=== PATIENT | female | born 1960 | race Caucasian/White ===

== ENCOUNTER → 2023-07-01 15:53 | Outpatient (REF) | payer BC, SELFPAY | LOC: HWWDC 15:53 | PROVIDERS: ATTENDING PHYSICIAN Obstetrics & Gynecology Gynecology; FAMILY PHYSICIAN Internal Medicine | DX: Z12.31 Encounter for screening mammogram for malignant neoplasm of breast (principal); Z85.3 Personal history of malignant neoplasm of breast | CPT/HCPCS: 77063; 77067 ==

== ENCOUNTER → 2023-08-06 08:48 | Outpatient (REF) | payer BC, SELFPAY | LOC: HWRAD 08:48 | PROVIDERS: ATTENDING PHYSICIAN Obstetrics & Gynecology Gynecology; FAMILY PHYSICIAN Internal Medicine | DX: Z78.0 Asymptomatic menopausal state (principal) | CPT/HCPCS: 77080 ==

== ENCOUNTER → 2024-01-10 06:18 | Day surgery (SDC) | payer BC, SELFPAY | LOC: GI 06:18 | PROVIDERS: ATTENDING PHYSICIAN Internal Medicine | DX: Z12.11 Encounter for screening for malignant neoplasm of colon (principal); K64.8 Other hemorrhoids; D12.4 Benign neoplasm of descending colon; Z83.710 Family history of adenomatous and serrated polyps | CPT/HCPCS: 45385; 88305 ==

== ENCOUNTER 2024-03-16 00:37 | Inpatient (IN) | payer BC, SELFPAY ==
[2024-03-15 21:04] VITALS: BP 124/86
[2024-03-15 21:20] VITALS: BMI 21.8
--- NOTE | 2024-03-15 21:26 | ED.GENMED ---
History of Present Illness
<BRITNEY Evans - Last Filed: 03/16/24 01:29>
General
Chief Complaint: Flank Pain
Source: patient
Exam Limitations: clinical condition
Time Seen by Provider: 03/15/24 21:08
Nursing documentation reviewed up to this point in time: agreed with
History of Present Illness
History of Present Illness:
Patient is a 63yo F w/ PMH of kidney stones (2017) presents w/ complaint of L flank pain x3hrs. She reports around 6:30 pm feeling like she was developing a UTI which is how she felt last time she had kidney stones. This developed into dull L flank
pain which quickly turned into sharp pain w/ associated N/V. She tried taking 3 Motrin and vomited immediately after. Reports continued nausea and severe pain. States it feels like last time she had kidney stones but worse. She states her recent
urine has looked normal w/o cloudiness and blood. Denies fever, chills, fatigue, RIZO.
Review of Systems
<BRITNEY Evans - Last Filed: 03/16/24 01:29>
Review of Systems
Constitutional: Denies fever, fatigue or chills
EENT: Denies sore throat or runny nose
Respiratory: Denies cough or trouble breathing
Cardiac: Denies chest pain or palpitations
ABD/GI: Reports abdominal pain, nausea and vomiting; Denies diarrhea or constipated
: Reports flank pain; Denies dysuria, frequency, bleeding or dark urine
Neurological: Denies dizzy, headache, weakness or numbness
Phy Exam
<BRITNEY Evans - Last Filed: 03/16/24 01:29>
General Physical Exam
General Presentation: severe distress
General age: appears stated age
General Skin: warm and dry
General Habitus: normal
General Mental: tearful
Cardiovascular Exam
Cardiovascular Exam: regular rate/rhythm, no edema, no gallop and no murmur
Pulmonary Exam
Pulmonary Exam: lungs clear, no respiratory distress, no rales, no crackles, no rhonchi and no wheezing
Gastrointestinal Exam
Gastrointestinal Exam: normal bowel sounds, soft and non distended
Course
<Manju Noonan [facility] - Last Filed: 03/16/24 01:29>
Orders/Labs/Results
Orders:
Orders
03/15/24 21:22
CMP [Comprehensive Metabolic Panel] Urgent
Complete Blood Count/With Diff Urgent
Lipase Urgent
Comment: ADD ON
03/15/24 21:25
0.9% Sodium Chloride 1000 ml [Nss] 1,000 ml IV BOLUS
HYDROmorphone [Dilaudid] 0.5 mg IV NOW STA
Ketorolac [Toradol] 15 mg IV NOW STA
Ondansetron Injectable [Zofran] 4 mg IV NOW STA
03/15/24 21:26
CT Abd/pel Without Iv Or Oral Urgent
Comment:
Reason For Exam: l flank pain
03/15/24 22:19
Morphine Sulfate 4 mg IV NOW STA
03/15/24 22:47
HYDROmorphone [Dilaudid] 0.5 mg IV NOW STA
03/15/24 23:09
Urinalysis Reflex To Culture Urgent
Date Specimen was Collected: 03/15/24
Time Specimen was Collected: 23:07
Urine Microscopic Reflex Cult Urgent
Urine Culture Urgent
LOYD Source: U
Specimen Description:
Date Specimen was Collected: 03/15/24
Time Specimen was Collected: 23:07
03/15/24 23:17
CefTRIAXone [Rocephin] 2,000 mg IV NOW STA
03/15/24 23:28
Sterile Water [Sterile Water For Injection] 20 ml .ROUTE .[facility]
03/15/24 23:52
Morphine Sulfate 4 mg IV NOW STA
03/16/24 00:27
Admit/Transfer Patient As Directed
Co-Sign Provider:
Level of Care: Inpatient admission
Assign to:: Medical/Surgical
Physician / Group: Hospitalist
Diagnosis: Nephrolithiasis
Reason for Hospitalization: Complicated nephrolithiasis, uti
Expected length of stay greater than two midnights?: Yes
ELOS- Estimated Length of Stay in days: 2
I certify the patient meets the requirements for IP care: Yes
Code Status As Directed
Resuscitation Status: Full Code
PRN Pain Medication Management As Directed
May give lesser potent ordered pain med per pt: Yes
preference::
Protocol:: Medication orders for pain may be administered in a
manner that supports deferring to patient preference
when the pt is:
- Requesting an ordered lesser potent pain medication.
Least to most potent pain medications are defined
as: acetaminophen < NSAID < tramadol < opioids
(morphine, oxycodone, hydromorphone).
- Requesting a lesser dose of the same medication IF
ORDERED.
- Requesting a less intrusive route of administration
if both routes are prescribed by the provider (PO <
IV).
03/16/24 00:31
HYDROmorphone [Dilaudid] 0.5 mg IV NOW STA
03/16/24 01:00
Flush (0.9% Sodium Chloride) [Flush (Nss)] See Dose Instructions IV PER PROTOCOL
Abnormal Lab Results
03/15/24 03/15/24
21:22 23:09
MCH 31.8 H pg
(27.0-31.0)
Abs Immat Gran (auto) 0.1 H 10^3/uL
(0-0.05)
Immature Gran % 0.6 H %
(0-0.5)
BUN 27 H mg/dl
(7-17)
Glucose 136 H mg/dl
(70-99)
Urine Ketones 1+ A
(Negative)
Urine Nitrite (Reflex) Positive A
(Negative)
Urine Bilirubin 2+ A
(Negative)
Urine Urobilinogen 3+ A
(Neg - 1+)
Leukocyte Esterase Rfl Trace A
(Negative)
Urine RBC 3-6 A /HPF
(0-2)
Urine Bacteria (Reflex) Moderate A
(Negative)
03/15/24 21:22
03/15/24 21:22
Vital Signs
Initial and Last Documented VS:
Initial Vital Signs
Temp Pulse Resp BP Pulse Ox
98.2 F 64 28 124/86 100
03/15/24 21:04 03/15/24 21:04 03/15/24 21:04 03/15/24 21:04 03/15/24 21:04
Last Documented Vital Signs
Temp Pulse Resp BP Pulse Ox
98.2 F 57 12 131/80 98
03/15/24 21:04 03/16/24 00:45 03/16/24 00:45 03/16/24 00:01 03/16/24 00:45
Renéelt;Derian Whiteside, DO - Last Filed: 03/15/24 23:37>
Orders/Labs/Results
Orders:
Orders
03/15/24 21:22
CMP [Comprehensive Metabolic Panel] Urgent
Complete Blood Count/With Diff Urgent
Lipase Urgent
Comment: ADD ON
03/15/24 21:25
0.9% Sodium Chloride 1000 ml [Nss] 1,000 ml IV BOLUS
HYDROmorphone [Dilaudid] 0.5 mg IV NOW STA
Ketorolac [Toradol] 15 mg IV NOW STA
Ondansetron Injectable [Zofran] 4 mg IV NOW STA
03/15/24 21:26
CT Abd/pel Without Iv Or Oral Urgent
Comment:
Reason For Exam: l flank pain
03/15/24 22:19
Morphine Sulfate 4 mg IV NOW STA
03/15/24 22:47
HYDROmorphone [Dilaudid] 0.5 mg IV NOW STA
03/15/24 23:09
Urinalysis Reflex To Culture Urgent
Date Specimen was Collected: 03/15/24
Time Specimen was Collected: 23:07
Urine Microscopic Reflex Cult Urgent
Urine Culture Urgent
LOYD Source: U
Specimen Description:
Date Specimen was Collected: 03/15/24
Time Specimen was Collected: 23:07
03/15/24 23:17
CefTRIAXone [Rocephin] 2,000 mg IV NOW STA
03/15/24 23:28
Sterile Water [Sterile Water For Injection] 20 ml .ROUTE .[facility]-MED
03/15/24 23:52
Morphine Sulfate 4 mg IV NOW STA
03/16/24 00:27
Admit/Transfer Patient As Directed
Co-Sign Provider:
Level of Care: Inpatient admission
Assign to:: Medical/Surgical
Physician / Group: Hospitalist
Diagnosis: Nephrolithiasis
Reason for Hospitalization: Complicated nephrolithiasis, uti
Expected length of stay greater than two midnights?: Yes
ELOS- Estimated Length of Stay in days: 2
I certify the patient meets the requirements for IP care: Yes
Code Status As Directed
Resuscitation Status: Full Code
PRN Pain Medication Management As Directed
May give lesser potent ordered pain med per pt: Yes
preference::
Protocol:: Medication orders for pain may be administered in a
manner that supports deferring to patient preference
when the pt is:
- Requesting an ordered lesser potent pain medication.
Least to most potent pain medications are defined
as: acetaminophen < NSAID < tramadol < opioids
(morphine, oxycodone, hydromorphone).
- Requesting a lesser dose of the same medication IF
ORDERED.
- Requesting a less intrusive route of administration
if both routes are prescribed by the provider (PO <
IV).
03/16/24 00:31
HYDROmorphone [Dilaudid] 0.5 mg IV NOW STA
03/16/24 01:00
Flush (0.9% Sodium Chloride) [Flush (Nss)] See Dose Instructions IV PER PROTOCOL
Abnormal Lab Results
03/15/24 03/15/24
21:22 23:09
MCH 31.8 H pg
(27.0-31.0)
Abs Immat Gran (auto) 0.1 H 10^3/uL
(0-0.05)
Immature Gran % 0.6 H %
(0-0.5)
BUN 27 H mg/dl
(7-17)
Glucose 136 H mg/dl
(70-99)
Urine Ketones 1+ A
(Negative)
Urine Nitrite (Reflex) Positive A
(Negative)
Urine Bilirubin 2+ A
(Negative)
Urine Urobilinogen 3+ A
(Neg - 1+)
Leukocyte Esterase Rfl Trace A
(Negative)
Urine RBC 3-6 A /HPF
(0-2)
Urine Bacteria (Reflex) Moderate A
(Negative)
03/15/24 21:22
03/15/24 21:22
Vital Signs
Initial and Last Documented VS:
Initial Vital Signs
Temp Pulse Resp BP Pulse Ox
98.2 F 64 28 124/86 100
03/15/24 21:04 03/15/24 21:04 03/15/24 21:04 03/15/24 21:04 03/15/24 21:04
Last Documented Vital Signs
Temp Pulse Resp BP Pulse Ox
98.2 F 57 12 131/80 98
03/15/24 21:04 03/16/24 00:45 03/16/24 00:45 03/16/24 00:01 03/16/24 00:45
<BRITNEY Evans - Last Filed: 03/16/24 01:29>
MDM/Problems Addressed
Differential Diagnosis Includes:
nephrolithiasis, pyelonephritis, muscle spasm
<BRITNEY Evans - Last Filed: 03/16/24 01:29>
*Critical Care Note
Total Time (30-74mins, 75-104mins- exclusive of procedures): Not Applicable
<Derian Whiteside DO - Last Filed: 03/15/24 23:37>
Update Note
Update Note:
IMPRESSION:
2 mm obstructing left ureterovesical junction calculus.
Bilateral nephrolithiasis.
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 Consider follow-up evaluation with CT or MRI of the lower chest/upper abdomen in 6 months-1 year.
Calcified fibroid in the right pelvis.
Bony degenerative changes as described.
ED Attending Note
<BRITNEY Evans - Last Filed: 03/16/24 01:29>
-
Portions of this chart may have been created with voice recognition software.� Occasional wrong word or��sound alike� substitutions may have occurred due to the inherent limitations of voice recognition software.
<Derian Whiteside DO - Last Filed: 03/15/24 23:37>
ED Attending Note
Patient seen and examined by attending physician: Yes
I performed the substantive portion of visit, reviewed & personally made and approve the management plan that is documented in note by myself or SHONDA.: Yes
ED Attending Note:
Pleasant 63-year-old female presents to the emergency department with left flank pain that occurred approximate 3 hours prior to arrival. She states that around 6:30 PM she had sharp pain that radiated around to her front. She felt that she was
developing a urinary tract infection so she came into the emergency department. She does have a history of kidney stones but states that this kidney stone feels worse. She did take 3 Motrin but vomited them up. She does report some nausea
especially when the pain flares up. She denies fever or chills. Patient was seen in conjunction with the PA student. I have reviewed and agree with the history and treatment plan presented. On my independent physical exam, patient is awake,
alert, and oriented x3, moderate to severe acute distress. Left CVA tenderness. Heart is regular rate rhythm. Abdomen soft and nontender with good bowel sounds throughout. Moves all [address] scan shows a 2 mm kidney stone. Patient has required several doses of pain medication. She does have a UTI. She received Rocephin. Spoke with Serafin Andrade, urology who agreed with plan to admit to hospitalist service. Hospitalist aware.
Discharge Plan
Departure
Patient Disposition: Admit
Date of Disposition: 03/15/24
Time of Disposition: 23:36
Admit to: Med/Surg
Presentation/result/management discussed w/ accepting MD/DO: Hospitalist
Discharge Problem:
Kidney stone, UTI (urinary tract infection)
Interventions
Interventions:
*Risk Screen - Suicide Last Done: 03/15/24 21:21
*General Assessment Last Done: 03/15/24 21:21
*Neglect/Abuse Screening Last Done: 03/15/24 21:21
ED- Fall Risk Assessment Last Done: 03/15/24 21:32
*ED COVID-19 Vaccine History Last Done: 03/15/24 21:21
XW-Xfufqv-Bsqadagfmi Assessment Last Done: 03/15/24 21:32
ED-Female Genitourinary Assessment Last Done: 03/15/24 21:32
[2024-03-15 21:28] LABS: % Basophils 0.6 % (0-2); % Eosinophils 0.7 % (0-6); % Immature Granulocytes 0.6 % (0-0.5); % Lymphocytes 33.1 % (20.5-51.1); % Monocytes 4.2 % (1.7-9.3); % Neutrophils 60.8 % (42.2-75.2); Absolute Basophils 0.1 10^3/uL (0-0.2); Absolute Eosinophils 0.1 10^3/uL (0-0.7); Absolute Immature Granulocytes 0.1 10^3/uL (0-0.05); Absolute Lymphocytes 2.8 10^3/uL (1.2-3.4); Absolute Monocytes 0.4 10^3/uL (0.1-0.6); Absolute Neutrophils 5.2 10^3/uL (1.4-6.5); Hematocrit 38.4 % (37.0-47.0); Hemoglobin 13.9 g/dL (12.0-16.0); Mean Corp Hgb Conc. 36.2 g/dL (33.0-37.0); Mean Corpuscular Hgb 31.8 pg (27.0-31.0); Mean Corpuscular Volume 87.9 fL (81.0-99.0); Mean Platelet Volume 8.9 fL (7.4-10.4); Nucleated Red Blood Cells % 0 %; Platelet Count 246 10^3/uL (130-400); Red Blood Cell Count 4.37 10^6/uL (4.20-5.40); Red Cell Dist. Width 11.9 % (11.5-14.5); White Blood Cell Count 8.6 10^3/uL (4.8-10.8)
[2024-03-15] MEDS: DILAUDID 0.5 MG IV ×2 (21:29→22:52)
[2024-03-15] MEDS: NSS 1000 IV (21:29)
[2024-03-15] MEDS: TORADOL 15 MG IV (21:29)
[2024-03-15] MEDS: ZOFRAN 4 MG IV (21:29)
[2024-03-15 21:41] LABS: ALT (SGPT) 19 U/L (0-35); AST (SGOT) 28 U/L (14-36); Albumin 4.6 g/dl (3.5-5.0); Alkaline Phosphatase 61 U/L (38-126); Blood Urea Nitrogen 27 mg/dl (7-17); Calcium 10.1 mg/dl (8.4-10.2); Carbon Dioxide 22 mmol/L (22-30); Chloride 106 mmol/L (98-107); Estimated Creatinine Clearance 61 ml/min; Glucose 136 mg/dl (70-99); Potassium 4.1 mmol/L (3.5-5.1); Sodium 142 mmol/L (135-145); Total Bilirubin 1.1 mg/dl (0.2-1.3); Total Protein 6.8 g/dl (6.3-8.2); eGFR > 60.00
[2024-03-15 21:45] LABS: Lipase 112 U/L (23-300)
[2024-03-15 21:51] VITALS: BP 109/71
[2024-03-15 22:00] VITALS: BP 114/82
[2024-03-15] MEDS: MORPHINE SULFATE 4 MG IV ×2 (22:20→23:56)
[2024-03-15 23:05] VITALS: BP 141/82
[2024-03-15 23:15] LABS: Urine Albumin Trace (Neg - Trace); Urine Bilirubin 2+ (Negative); Urine Character Clear (Clear); Urine Color Orange; Urine Glucose Negative (Negative); Urine Ketone 1+ (Negative); Urine Leukocyte Trace (Negative); Urine Nitrite Positive (Negative); Urine Occult Blood Negative (Negative); Urine Urobilinogen 3+ (Neg - 1+)
[2024-03-15 23:29] LABS: Urine Bacteria Moderate (Negative); Urine Squamous Cell 0-2 /LPF (Few)
[2024-03-15] MEDS: ROCEPHIN 2000 MG IV (23:31)
[2024-03-16 00:01] VITALS: BP 131/80
--- NOTE | 2024-03-16 00:31 | HPS.HSE ---
Family Physician
-
Family Physician: Josue Garcia
Chief Complaint
-
Left-sided flank pain
History of Present Illness
This is a 63-year-old female with past medical history of lumpectomy and prior kidney stone presents to the emergency department with acute onset of left-sided flank pain radiating to the left groin. Patient was in usual state of health up until
event that happened during the nighttime prior to coming to the ED. She had nausea but no vomiting. She has had no fevers or chills. She denies any dysuria. No recent hematuria. Patient reportedly had a kidney stone in the left kidney in 2017.
She stated that she passed the stone spontaneously. No other episodes. She reported that she started taking vitamin D and calcium supplements recently.
On arrival in the emergency department she was afebrile, she was hemodynamically stable with a blood pressure of 130/80, pulse of 60 and she was satting 100% on room air. UA was markedly positive with blood pyuria and moderate bacteriuria. WBC
hemoglobin and platelet counts were all within normal limits. Chemistries were unremarkable. A CT of the abdomen pelvis showed a 2 mm left UVJ stone without hydro.
Medical History
Past Medical History
Past Medical History: Reports Other (Nephrolithiasis)
Past Surgical History: Reports Other
Social History
Tobacco: Non-smoker
Alcohol: Occasional
Drug: None
Personal:
Living: With Family
Employment: Employed
Family History
Family History: Cancer
Allergies / Home Medications
Allergies reflects when Allergies were last updated in [employer].
Home Medications with original date entered in [employer]
Allergy/Medication List:
Allergies
Allergy/AdvReac Type Severity Reaction Status Date / Time
No Known Allergies Allergy Verified 03/15/24 21:06
Home Medications
Vitamin D3 (with calcium carb) 1 tab PO 03/15/24
Review of Systems
-
History Source: Patient
Constitutional: Reports No Symptoms
EENT: Reports No Symptoms
Respiratory: Reports No Symptoms
Cardiac: Reports No Symptoms
Abdomen/GI: Reports No Symptoms
: Reports Flank Pain
Musculoskeletal: Reports No Symptoms
Skin: Reports No Symptoms
Neurological: Reports No Symptoms
Endocrine: Reports No Symptoms
Hematologic/Lymphatic: Reports No Symptoms
Psych: Reports No Symptoms
Physical Exam
Vital Signs
Vital Signs
Temp Pulse Resp BP Pulse Ox
98.2 F 62 20 131/80 100
03/15/24 21:04 03/16/24 00:01 03/16/24 00:01 03/16/24 00:01 03/15/24 23:45
Physical Exam
General: Well Developed, Well Nourished and Pain
HEENT: NormoCephalic, Anicteric, Moist mucous membranes and Atraumatic
Respiratory: Clear
Cardiac: S1/S2 and Regular Rhythm
Breast: Deferred by me
GI: Soft, Non Tender, Non Distended and Normal Bowel Sounds
Rectal: Deferred by Provider
Genito-urinary: Costovertebral angle tend
Musculoskeletal: No Clubbing, No Cyanosis and No Edema
Skin: Warm
Neuro: AO x 3
Hematologic/Lymphatic: No Lymphadenopathy
Psych: Calm
Laboratory Results
-
03/15/24 21:22
03/15/24 21:22
Laboratory Results
Total Bilirubin 1.1 mg/dl (0.2-1.3) 03/15/24 21:22
AST 28 U/L (14-36) 03/15/24 21:22
ALT 19 U/L (0-35) 03/15/24 21:22
Alkaline Phosphatase 61 U/L (38-126) 03/15/24 21:22
Lipase Cancelled 03/15/24 21:25
Data Reviewed
-
CT Scan: Report Reviewed by me
Lab Data: Labs Reviewed by me
Impression/Plan
-
IMPRESSION:
63-year-old female generally healthy with history of prior left-sided kidney stone which passed percutaneously 2017 comes in with left-sided flank pain radiating to groin and found to have a urinary tract infection and positive UA. She has no
systemic signs of infection at this time.
PLAN:
1. Nephrolithiasis - 2mm L UVJ stone, no hydro. + U/A.
- admit to med/surg
- urine cultures sent
- continue ceftriaxone
- d/w urology, NPO, to see in am
- IV fluids, tamsulosin, pain control and antiemetics
- strain urine for now
DVT PPX - SCD pending urology evaluation
Code Status - Full Code
[2024-03-16] MEDS: DILAUDID 0.5 MG IV (00:38)
[2024-03-16 01:00] VITALS: BP 116/69
[2024-03-16] MEDS: NSS 1000 IV (02:26)
--- NOTE | 2024-03-16 02:54 | PTCARENOTE ---
Pt received from ED via stretcher. Pt independent from stretcher to bed. Vitals signs obtained and stable, pt AAOX3, oriented to room and call carlton within reach. Pain meds given in ED, no complaints of pain currently. Will continue to monitor.
[2024-03-16 05:51] LABS: Hemoglobin 12.1 g/dL (12.0-16.0); Mean Corp Hgb Conc. 34.6 g/dL (33.0-37.0); Mean Corpuscular Hgb 31.8 pg (27.0-31.0); Mean Corpuscular Volume 91.9 fL (81.0-99.0); Mean Platelet Volume 8.9 fL (7.4-10.4); Platelet Count 206 10^3/uL (130-400); Red Blood Cell Count 3.81 10^6/uL (4.20-5.40); Red Cell Dist. Width 11.9 % (11.5-14.5)
[2024-03-16 06:04] LABS: INR 1.03; PT 13.4 Sec (11.4-14.6)
--- NOTE | 2024-03-16 06:04 | CON.MD ---
Consultation - Medical
-
see dictated note
pt with remote hx of stones
presented to ER with colic- left uvj stone
admitted for pain control- but passed stone- feels great
? UTI
reviewed with pt
discharge with antibx
send stone for analysis
antibx
call my office in 48hrs to schedule appointment and review cx results
[2024-03-16 06:05] LABS: APTT 26.7 Sec (23.4-35.0)
[2024-03-16 06:18] LABS: Blood Urea Nitrogen 25 mg/dl (7-17); Calcium 8.9 mg/dl (8.4-10.2); Carbon Dioxide 25 mmol/L (22-30); Chloride 108 mmol/L (98-107); Estimated Creatinine Clearance 61 ml/min; Glucose 132 mg/dl (70-99); Potassium 4.7 mmol/L (3.5-5.1); Sodium 142 mmol/L (135-145); eGFR > 60.00
[2024-03-16 07:42] VITALS: BP 99/62
--- NOTE | 2024-03-16 08:45 | CM ---
Pt discharged prior to CM completing assessment
Per chart review, no dc needs noted
--- NOTE | 2024-03-16 09:03 | W.DS.TRANS ---
DC Summary - [employer]
-
Discharge Instructions:
Discharge Diagnosis/Procedures kidney stone and possible urinary tract
infection
Diet No restrictions
Activity No restrictions
Driving Restrictions As prior to admission
Bathing Restrictions None
Instructions:
Stand-Alone Forms:
Changes to Home Medications: No
Discharge Medications:
DC Medications w/original date entered in [employer]
Vitamin D3 (with calcium carb) 1 tab PO 03/15/24
sulfamethoxazole 800 mg-trimethoprim 160 mg tablet (Bactrim DS) 1 tab PO BID #10 tabs 03/16/24
Home Medication Changes
Pending Results: Yes
Additional Pending Results:
urine culture
Total time spent discharging patient (in min): 20 minutes
== END 2024-03-16 08:15 | disposition home or self-care (01) | DRG 694 ==
LOC: 3 WEST ACU 00:37
PROVIDERS: ADMITTING PHYSICIAN Internal Medicine; ATTENDING PHYSICIAN Hospitalist; CONSULT PHYSICIAN Specialist; EMERGENCY PHYSICIAN Student in an Organized Health Care Education/Training Program; FAMILY PHYSICIAN Internal Medicine
DX: N20.2 Calculus of kidney with calculus of ureter (principal); N39.0 Urinary tract infection, site not specified; Z87.442 Personal history of urinary calculi
CPT/HCPCS: 74176; 80048; 80053; 81003; 81015; 82365; 83690; 83735; 85025; 85027; 85610; 85730; 87086; 96361; 96374; 96375; 96376; 99285

== ENCOUNTER → 2024-07-02 15:27 | Outpatient (REF) | payer BC, SELFPAY | LOC: HWWDC 15:27 | PROVIDERS: ATTENDING PHYSICIAN Obstetrics & Gynecology Gynecology; FAMILY PHYSICIAN Internal Medicine | DX: Z12.31 Encounter for screening mammogram for malignant neoplasm of breast (principal) | CPT/HCPCS: 77063; 77067 ==

== ENCOUNTER → 2025-03-17 09:32 | Outpatient (REF) | payer BC, SELFPAY | LOC: RAD 09:32 | PROVIDERS: ATTENDING PHYSICIAN Specialist; FAMILY PHYSICIAN Internal Medicine | DX: R19.00 Intra-abdominal and pelvic swelling, mass and lump, unspecified site (principal) | CPT/HCPCS: 74177; Q9967 ==